=== PATIENT | male | born 1980 | race Caucasian/White ===

== ENCOUNTER 2016-06-03 20:42 | Emergency (ER) | payer OTHER ==
[2016-06-03 20:51] VITALS: BP 125/77
[2016-06-03] MEDS ORDERED: KETOROLAC TROMETHAMINE 60 MG/2 ML SDV IM ONE (21:45)
[2016-06-03] MEDS ORDERED: KETOROLAC TROMETHAMINE INJ/PF 30 MG/1 ML SDV ONE (21:47)
--- NOTE | 2016-06-03 21:49 | ER Document Report ---
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 States he was lifting weights 2 days ago and today he felt like his normal post workup soreness had progressed and low back pain that has become more severe and is now radiating down the back of his right leg. Patient denies any urinary/stool incontinence, saddle anesthesia. Able to walk but he says getting in and out of his car is been very difficult. Otherwise healthy male. - CARDIOVASCULAR Cardiovascular: DENIES: Chest pain - DERM Skin Color: Normal, [place] Past Medical History - General Information source: Patient - Social History Smoking Status: Never Smoker Family History: None Renal/ Medical History: Denies: Hx Peritoneal Dialysis Past Surgical History: Reports: Hx Orthopedic Surgery - lt shoulder, rt knee - Immunizations Hx Diphtheria, Pertussis, Tetanus Vaccination: Yes Vertical Provider Document - CONSTITUTIONAL Agree With Documented VS: Yes Exam Limitations: No Limitations General Appearance: WD/WN, No Apparent Distress - INFECTION CONTROL TRAVEL OUTSIDE OF THE [place] IN LAST 30 DAYS: No - HEENT HEENT: Atraumatic, Normocephalic - NECK Neck: Normal Inspection, Other - Full range of motion, no pain to palpation of the C-spine or paraspinous muscles - RESPIRATORY O2 Sat by Pulse Oximetry: 98 - CARDIOVASCULAR Pulses: Normal: Dorsalis pedis - BACK Back: Normal Inspection Notes: Pain to palpation of the right lumbar paraspinous muscles with of his pain down the back of his right leg. Otherwise his strength is 5 out of 5 bilaterally able to bear weight without any difficulty no limitations in gait. - MUSCULOSKELETAL/EXTREMETIES Musculoskeletal/Extremeties: MAEW, FROM, Non-Tender, No Edema. negative: Eccymosis - NEURO Level of Consciousness: Awake, Alert, Appropriate Motor/Sensory: No Motor Deficit, No Sensory Deficit Course - Re-evaluation Re-evalutation: 06/03/16 22:40 Patient has evidence of an acute muscle strain. Given information on management at home along with back stretches. Can follow-up with his primary care provider as needed. - Vital Signs Vital signs: Temp Pulse Resp BP Pulse Ox 97.3 F 70 16 125/77 98 06/03/16 20:49 06/03/16 20:49 06/03/16 20:49 06/03/16 20:49 06/03/16 20:51 Discharge - Discharge Clinical Impression: Low back pain Condition: Good Disposition: HOME, SELF-CARE Instructions: Muscle Strain ([facility]), Stretching Exercises for the Back ([facility]) Additional Instructions: LOW BACK PAIN: Three out of every four people will have an episode of disabling back pain during their lifetime. Most commonly the pain is due to straining of the muscles and ligaments in the low back. Usual treatment includes: (1) Rest on a firm surface. Avoid lying on your stomach. (2) Ice pack the painful area. After a few days, gentle heat may be used intermittently to relax the area, or ice packs can be continued. (3) Medication may be needed -- muscle relaxers and antiinflammatory medicines are commonly used. (4) As the back improves, exercises are prescribed to strengthen the back and abdominal muscles. Your doctor will advise you on the proper care for your back at each stage in your recovery. You may be better in a few days -- or healing may take several weeks. If new symptoms of a "herniated disc" (radiation of pain, numbness, or tingling down the back of the leg or weakness in the leg) occur, you should be re-examined. Further testing may be necessary. PAIN MEDICATION INJECTION: You have received an injection of a pain medication. You should experience significant pain relief within 45 minutes. If this injection was a narcotic -- it will impair your judgement, slow your reaction time and make you sleepy (as well as relieve your pain). Narcotics also can cause nausea. You should not drive, work with machinery, or perform any task requiring mental alertness until all effects of the medication are gone -- six to eight hours. Do not take any alcohol, or sedatives, and do not take any other medication without checking with your physician. MUSCLE RELAXERS: Muscle relaxing medications are usually prescribed for acute muscle spasm or injury to the neck and back. They are often combined with antiinflammatory pain medication for increased relief. You may stop the muscle relaxer when the pain and stiffness have improved. Start the medication again if spasms recur. Muscle relaxers may cause drowsiness, especially with the first dose. Do not operate machinery or drive while under the effects of the medication. Most muscle relaxers last up to 24 hours. Do not combine the medication with alcohol. ICE PACKS: Apply ice packs frequently against the painful area. Many different schedules are recommended, such as "20 minutes on, 20 minutes off" or "one hour ice, two hours rest." If you need to work, you may need to go longer between ice treatments. You should plan to have the area ice packed AT LEAST one fourth of the time. The ice should be applied over the wrap, tape, or splint, or over a layer of cloth -- not directly against the skin. Some ice bags have a built-in cloth and can be put directly on the skin. WARM PACKS: After approximately two days, apply gentle heat (such as a heating pad or hot water bottle) for about 20 to 30 minutes about every two hours -- at least four times daily. Warmth and elevation will help you make a more rapid recovery , and will ease the pain considerably. Do not use HOT heat, and never apply heat for longer than 30 minutes. The continuous heat can invisibly damage skin and muscles -- even when no burn is seen on the surface. Damaged muscles can make you MORE sore. FOLLOW-UP CARE: If you have been referred to a physician for follow-up care, call the physician s office for an appointment as you were instructed or within the next two days. If you experience worsening or a significant change in your symptoms, notify the physician immediately or return to the Emergency Department at any time for re-evaluation. Prescriptions: Ibuprofen [Motrin 800 mg Tablet] 800 mg PO Q8HP PRN #30 tab PRN Reason: Methocarbamol [Robaxin 500 mg Tablet] 1,000 mg PO BIDP PRN 7 Days PRN Reason: Forms: Return to Work
== END 2016-06-03 21:55 | disposition home or self-care (01) ==
LOC: ER 20:42
DX: T14.8 Other injury of unspecified body region (principal); M54.5 Low back pain; X58.XXXA Exposure to other specified factors, initial encounter
CPT/HCPCS: 99283; 96372; J1885

== ENCOUNTER 2016-09-03 01:12 | Emergency (ER) | payer OTHER ==
[2016-09-03] MEDS ORDERED: ACETAMINOPHEN 325 MG TABLET PO ONE (01:32)
[2016-09-03] MEDS ORDERED: OXYCODONE-ACETAMINOPHEN 5-325 MG TABLET PO ONE (02:24)
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
[2016-09-03] MEDS ORDERED: ONDANSETRON ODT 4 MG TAB (6 TAB/DSPK) PO PRN (03:03)
[2016-09-03] MEDS ORDERED: HYDROCODONE/ACETAMINOPHEN 5-325 MG 6 TAB/DSPK PO PRN (03:03)
[2016-09-03 03:23] VITALS: BP 119/86
== END 2016-09-03 03:26 | disposition home or self-care (01) ==
LOC: ER 01:12
DX: S80.02XA Contusion of left knee, initial encounter (principal); S79.912A Unspecified injury of left hip, initial encounter; X58.XXXA Exposure to other specified factors, initial encounter; Y99.0 Civilian activity done for income or pay
CPT/HCPCS: 99283

== ENCOUNTER 2018-01-21 20:38 | Emergency (ER) | payer OTHER ==
[2018-01-21] MEDS ORDERED: DIAZEPAM INJ 10 MG/2 ML DISP.SYRIN IM ONE (21:02)
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
--- NOTE | 2018-01-21 22:23 | RADIOLOGY REPORT (SQ) ---
PROCEDURE: MRI lumbar spine without contrast CLINICAL HISTORY: 37 years Male back pain COMPARISON: None. COMPLETED DATE/TME: 01/21/2018 20:58 TECHNIQUE: Multiplanar and multisequence imaging obtained through the lumbar spine without IV contrast. FINDINGS: Normal alignment lordosis. No evidence of geographic marrow lesion. No evidence of marrow edema. Conus is unremarkable and ends at T12. There is loss of signal in the L5-S1 disc consistent with disc desiccation. L1-L2, L2-L3 levels are unremarkable. L3-4: Mild facet arthropathy without central canal or neural foraminal stenosis. L4-5: Mild disc bulging and facet arthropathy. There is no central canal stenosis. Mild neural foraminal narrowing on the left. L5-S1: There is a broad-based left sided disc protrusion which results in some impingement on the anterior left aspect of the thecal sac and the left neural foramen. IMPRESSION: Broad-based disc protrusion at L5-S1 on the left without significant central canal stenosis. There is mild impingement on the left neural foramen and some flattening of the left aspect of the thecal sac. Additional changes as above
[2018-01-21] MEDS ORDERED: HYDROMORPHONE HCL INJ/PF 2 MG/ML AMPULE IM ONE (22:41)
[2018-01-22 00:10] VITALS: BP 130/80
== END 2018-01-21 23:00 | disposition home or self-care (01) ==
LOC: ER 20:38
DX: M54.42 Lumbago with sciatica, left side (principal)
CPT/HCPCS: 99284; 72148; J3360; J1170

== ENCOUNTER 2018-02-27 14:50 | Emergency (ER) | payer OTHER ==
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
[2018-02-27 16:53] VITALS: BP 119/83
--- NOTE | 2018-02-27 22:38 | EKG REPORT ---
SEVERITY:- NORMAL ECG - SINUS RHYTHM : Confirmed by: Linnette Jenkins 27-Feb-2018 22:37:29
== END 2018-02-27 17:10 | disposition home or self-care (01) ==
LOC: ER 14:50
DX: T40.2X1A Poisoning by other opioids, accidental (unintentional), initial encounter (principal); R42 Dizziness and giddiness; R05 Cough; Z57.8 Occupational exposure to other risk factors; Y92.410 Unspecified street and highway as the place of occurrence of the external cause
CPT/HCPCS: 93005; 93010; 99284

== ENCOUNTER 2018-06-04 22:17 | Emergency (ER) | payer OTHER ==
[2018-06-05] MEDS ORDERED: HYDROCODONE/ACETAMINOPHEN 5-325 MG (6 TAB/ER DISP) PO PRN (00:13)
--- NOTE | 2018-06-05 00:27 | ER Document Report ---
ED General - General Chief Complaint: Neck Pain >24hrs old Stated Complaint: NECK PAIN Time Seen by Provider: 06/04/18 23:01 Primary Care Provider: ROSEMARY MENESES NP-C [Primary Care Provider] - Follow up as needed Mode of Arrival: Ambulatory Information source: Patient TRAVEL OUTSIDE OF THE [place] IN LAST 30 DAYS: No - HPI Patient complains to provider of: neck pain Onset: Other - 37-year-old male with a history of sciatica as well as tight cervical muscles and slipped this that presents for evaluation of pain shooting down the left arm from the shoulder into the elbow. Denies any trauma or inciting event, moving his head seems to exacerbate the problem. - Related Data Allergies/Adverse Reactions: No Known Allergies Allergy (Verified 01/14/18 13:01) Past Medical History - General Information source: Patient - Social History Smoking Status: Unknown if Ever Smoked Family History: None Patient has suicidal ideation: No Patient has homicidal ideation: No Renal/ Medical History: Denies: Hx Peritoneal Dialysis Past Surgical History: Reports: Hx Orthopedic Surgery - lt shoulder, rt knee - Immunizations Hx Diphtheria, Pertussis, Tetanus Vaccination: Yes Review of Systems - Review of Systems -: Yes All other systems reviewed and negative Physical Exam - Vital signs Vitals: Temp Pulse Resp BP Pulse Ox 97.5 F 88 18 141/92 H 99 06/04/18 22:29 06/04/18 22:29 06/04/18 22:29 06/04/18 22:29 06/04/18 22:29 - General General appearance: Appears well In distress: None - HEENT Head: Normocephalic, Atraumatic Eyes: Normal Pupils: PERRL - Respiratory Respiratory status: No respiratory distress Chest status: Nontender Breath sounds: Normal Chest palpation: Normal - Cardiovascular Rhythm: Regular Heart sounds: Normal auscultation Murmur: No - Abdominal Inspection: Normal Distension: No distension Bowel sounds: Normal Tenderness: Nontender Organomegaly: No organomegaly - Back Back: Tender - Tenderness along left trapezius, tenderness along the left deltoid, tenderness along the left triceps - Extremities General upper extremity: Normal inspection, Nontender, Normal color, Normal ROM, Normal temperature General lower extremity: Normal inspection, Nontender, Normal color, Normal ROM, Normal temperature, Normal weight bearing. 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 Does demonstrate some radicular symptoms. Firebreak Cutter strength is intact. He has been evaluated by spine surgeon in the past for his lumbar spine, in discussion we talked about treatment options I think he would benefit from evaluation by spine surgeon for potential intervention in the cervical spine. He will likely require MRI. Deferred intervention at this time. We will plan for this patient undergo discharge with return precautions and encouraged follow-up with his spine surgeon, he was given a prescription for Robaxin. - Vital Signs Vital signs: Temp Pulse Resp BP Pulse Ox 97.5 F 88 18 141/92 H 99 06/04/18 22:29 06/04/18 22:29 06/04/18 22:29 06/04/18 22:29 06/04/18 22:29 Discharge - Discharge Clinical Impression: Neck pain, Numbness and tingling in left arm Condition: Good Disposition: HOME, SELF-CARE Additional Instructions: You were seen today in the emergency department for the tingling and numbness in your arm as well as the pain in your neck. I think that you have a combination of a muscle spasm and some nerve pinching. You need to follow-up with your spine surgeon about treatment options for this. You should return in case of any worsening numbness or weakness. You been given medications to use as needed to help with this. Prescriptions: Methocarbamol [Robaxin 500 mg Tablet] 500 mg PO BID #20 tablet Morphine Sulfate [Morphine Ir 15 Mg Tablet] 15 mg PO Q12 #10 tablet Referrals: ROSEMARY MENESES NP-C [Primary Care Provider] - Follow up as needed
[2018-06-05 00:38] VITALS: BP 145/87
== END 2018-06-05 00:38 | disposition home or self-care (01) ==
LOC: ER 22:17
DX: M54.2 Cervicalgia (principal); R20.0 Anesthesia of skin; M25.522 Pain in left elbow
CPT/HCPCS: 99283

== ENCOUNTER 2018-12-28 22:17 | Emergency (ER) | payer OTHER ==
[2018-12-28] MEDS ORDERED: DEXAMETHASONE SOD PHOS INJ 10 MG/1 ML VIAL IM ONE (22:52)
[2018-12-28] MEDS ORDERED: HYDROCODONE/ACETAMINOPHEN 5-325 MG (6 TAB/ER DISP) PO PRN (22:53)
--- NOTE | 2018-12-28 23:01 | ER Document Report ---
ED Neck/Back Problem - General Chief Complaint: Back Pain Stated Complaint: BACK PAIN Time Seen by Provider: 12/28/18 22:39 Primary Care Provider: ROSEMARY MENESES NP-C [Primary Care Provider] - Follow up as needed Notes: Patient is a 38-year-old male that comes to the emergency department for chief complaint of lower back pain. Patient states he has a history of lower back pain in the past, he has struggled with a herniated disc at L5-S1, he states he was doing better but about 3 days ago he started feeling sharp pain on the left side of his lower back with radiation down the left leg. He denies inability to urinate, fecal incontinence, numbness, fever, history of IV drug abuse. Patient states he has had intermittent back pain since he was in the and he is active with his job currently as well. He denies a specific recent injury. He states he follows with [facility], takes Robaxin and ibuprofen, however occasionally he will need a back injection which works very well. He denies medical history otherwise. TRAVEL OUTSIDE OF THE [place] IN LAST 30 DAYS: No - Related Data Allergies/Adverse Reactions: No Known Allergies Allergy (Verified 01/14/18 13:01) Past Medical History - General Information source: Patient - Social History Smoking Status: Never Smoker Drug Abuse: None Lives with: Family Family History: None Renal/ Medical History: Denies: Hx Peritoneal Dialysis Past Surgical History: Reports: Hx Orthopedic Surgery - lt shoulder, rt knee - Immunizations Hx Diphtheria, Pertussis, Tetanus Vaccination: Yes Review of Systems - Review of Systems Constitutional: No symptoms reported EENT: No symptoms reported Cardiovascular: No symptoms reported Respiratory: No symptoms reported Gastrointestinal: No symptoms reported Genitourinary: No symptoms reported Male Genitourinary: No symptoms reported Musculoskeletal: See HPI Skin: No symptoms reported Hematologic/Lymphatic: No symptoms reported Neurological/Psychological: No symptoms reported Physical Exam - Vital signs Vitals: Temp Pulse Resp BP Pulse Ox 97.7 F 72 16 138/86 H 95 12/28/18 22:21 12/28/18 22:21 12/28/18 22:21 12/28/18 22:21 12/28/18 22:21 - Notes Notes: GENERAL: Patient standing uncomfortably in the room, has trouble with position changes, appears to be in some pain HEAD: Normocephalic, atraumatic. EYES: Pupils equal, round, and reactive to light. Extraocular movements intact. ENT: Oral mucosa moist, tongue midline. Oropharynx unremarkable. Airway patent. LUNGS: Clear to auscultation bilaterally, no wheezes, rales, or rhonchi. No respiratory distress. HEART: Regular rate and rhythm. No murmur ABDOMEN: Soft, non-tender. Non-distended. EXTREMITIES: Moves all 4 extremities spontaneously. No edema, normal radial and dorsalis pedis pulses bilaterally. No cyanosis. BACK: n tenderness mainly along the left paralumbar musculature, positive straight leg raise on the left, has obvious pain with position changes. No midline tenderness throughout the spine. No saddle anesthesia, normal distal neurovascular exam. Moves all extremities in full range of motion. NEUROLOGICAL: Alert and oriented x3. Normal speech. Cranial nerves II through XII grossly intact. PSYCH: Normal affect, normal mood. SKIN: Warm, dry, normal turgor. No rashes or lesions noted. Course - Re-evaluation Re-evalutation: I did review records, records show patient has herniation at L5-S1. This is consistent with patient's symptoms. He has positive straight leg raise, muscle spasm on evaluation of his back, has a lot of discomfort with position changes. This is not new for patient he has had similar flares in the past. No fever, history of IV drug abuse, neurological deficits. Discussed with patient. He will be provided with symptom management, muscle relaxers, and he does have good follow-up with pain management already scheduled. Discussed follow-up and return precautions. Patient states understanding and agreement. Stable at time of discharge. - Vital Signs Vital signs: Temp Pulse Resp BP Pulse Ox 98.6 F 71 16 138/85 H 97 12/28/18 23:25 12/28/18 23:25 12/28/18 22:21 12/28/18 23:25 12/28/18 23:25 Discharge - Discharge Clinical Impression: Lower back pain Qualifiers: Chronicity: unspecified Back pain laterality: left Sciatica presence: with sciatica Sciatica laterality: sciatica of left side Qualified Code(s): M54.42 - Lumbago with sciatica, left side Condition: Stable Disposition: HOME, SELF-CARE Additional Instructions: Based on your symptoms, evaluation, and most recent MRI your symptoms are from a herniated disc and this causing sciatica and muscle spasms. Apply heat to the area, rest, you have been doing dexamethasone to help recovery. This can take several days to resolve and sometimes longer, avoid lifting, twisting, significant physical activity for the time being. Use the Valium as a muscle relaxer and the pain medication only if needed for severe pain. Do not drink alcohol, drive, operate machinery, or combine with other sedating medication while taking these. Follow-up with your provider for additional management of your back pain. Return for any concerning symptoms including developing numbness, loss of bowel control, inability to urinate, fever, or any other concerning symptoms. Prescriptions: Morphine Sulfate [Morphine Ir 15 Mg Tablet] 15 mg PO TID PRN #12 tablet PRN Reason: Diazepam [Valium 5 mg Tablet] 1 - 2 tab PO TID PRN #12 tablet PRN Reason: Forms: Return to Work Referrals: ROSEMARY MENESES NP-C [Primary Care Provider] - Follow up as needed
[2018-12-28 23:37] VITALS: BP 138/85
== END 2018-12-28 23:37 | disposition home or self-care (01) ==
LOC: ER 22:17
DX: M54.42 Lumbago with sciatica, left side (principal)
CPT/HCPCS: J1100